=== PATIENT | male | born 1945 | race Caucasian/White ===

== ENCOUNTER 2019-03-12 19:19 | Observation (INO) | payer OTHER ==
--- OUTSIDE RECORDS SUMMARY | 2019-03-12 19:21 | XMS REPORT | Encounter Summary ---
:1945 Author Care Team Providers Name Role Phone Pau Herrera MD Primary Care Provider [phone] Reason for Visit New Patient Instructions 1. Osteoarthritis of knee knee arthritis: care instructions Celebrex 200 mg capsule CMP, serum or plasma Discussion Note: None recorded. Plan of Care Reminders Provider Appointments None recorded. Lab CMP, Serum 12/16/2018 or Plasma Referral None recorded. Procedures None recorded. Surgeries None recorded. Imaging None recorded. Medications Name Start Date amiodarone 200 mg tablet Take 1 tablet every day by oral route. Celebrex 200 mg capsule Take 1 capsule every day by oral route. celecoxib 100 mg capsule cholecalciferol (vitamin D3) cyclobenzaprine 10 mg tablet hydrochlorothiazide 25 mg tablet Take 1 tablet every day by oral route. hydrocodone 7.5 mg-acetaminophen 325 mg tablet metoprolol succinate ER 100 mg tablet,extended release 24 hr Take 1 tablet every day by oral route. simvastatin 40 mg tablet Take 1 tablet every day by oral route. tamsulosin 0.4 mg capsule Take 1 capsule every day by oral route. warfarin 5 mg tablet Medications Administered None recorded. Vitals Height Weight BMI Blood Pressure 72 in 228 lbs 30.9 kg/m2 146/81 mm[Hg] Lab Results None recorded. Allergies Code Code System Name Reaction Severity Status Onset [id number] RxNorm Levaquin Active Problems No Known Problems Procedures None recorded. Vaccine List None recorded. Social History Tobacco Smoking Status Never Smoker Past Encounters 12/16/2018 Osteoarthritis of Knee David Campbell MD: [address] [place] [address] [address], [place] [address], Ph. [phone] History of Present Illness Knee Reported By: Patient HPI: Location: left. Quality: aching, burning, gnawing. Severity: moderate. Duration: continuous since onset. Timing: chronic. Alleviating Factors: sitting, standing. Aggravating Factors: cannot identify. Previous Surgery: none. Prior Imaging: x ray. Previous Injections: none. Previous PT: none. Work Related: no. Working: no Review of Systems: ROS as noted in the HPI Review of Systems None recorded. Physical Exam Knee Reported By: Patient Constitutional: General Appearance: overweight, obese Gait and Station: Appearance: antalgic gait Cardiovascular System: Arterial Pulses Left: femoral diminished, popliteal diminished, dorsalis pedis diminished, posterior tibialis diminished Knees: Inspection Left: genu varum deformity. Bony Palpation Left: tenderness of the lateral wall trochlear groove. Active Range of Motion Left: limited. Passive Range of Motion Left: limited. Stability Left: Kat test negative, anterior drawer sign positive, posterior drawer sign positive. Special Tests Left: Brenda's test positive, Apley's compression test positive Skin: Right Lower Extremity: normal. Left Lower Extremity: normal Neurologic: Coordination: [id number] normal. Ankle Reflex Right: normal (2). Ankle Reflex Left: normal (2). Knee Reflex Right: normal (2). Knee Reflex Left: normal (2). Sensation on the Right: T12 normal, L1 normal, L2 normal, L3 normal, L4 normal, L5 normal, S1 normal, S2 normal, S3,4,5 normal. Sensation on the Left: T12 normal, L1 normal, L2 normal, L3 normal, L4 normal, L5 normal, S1 normal, S2 normal, S3,4,5 normal Psychiatric: Orientation: oriented to time, oriented to place, oriented to person. Mood and Affect: active and alert, normal mood, normal affect
--- OUTSIDE RECORDS SUMMARY | 2019-03-12 19:22 | XMS REPORT ---
:1945 [facility] Address [address] [place] [address] Care Team Providers Name Role Phone Unavailable Unavailable Unavailable Payers Payer Name Policy Type Policy Number Effective Date Expiration Date Problems This patient has no known problems. Allergies, Adverse Reactions, Alerts Allergy Name Allergy Status Severity Reaction(s) Onset Inactive Treating Comments Type Date Date Clin[place] [address] Allergies 9-16 00:00: 00 levofloxacin DA Active CA 2018- 9-16 00:00: 00 No Known DA Active U 2004-0 Contrast 8-30 Allergies 00:00: 00 No Known Drug DA Active U 2004-0 Allergies 8-30 00:00: 00 No Known Food DA Active U 2004-0 Allergies 8-30 00:00: 00 No Known Other DA Active U 2004-0 Allergies 8-30 00:00: 00 No Known Drug DA Active U 2001-0 Intolerances 2-07 00:00: 00 Medications This patient has no known medications. Results Test Description Test Time Test Comments Text Results Atomic Results Result Comments COMPREHENSIVE METABOLIC PANEL 2019-01-07 17:08:00 Test Item Value Reference Range Comments SODIUM (test code=NA) 142 mEq/L 134-147 POTASSIUM (test code=K) 3.8 mEq/L 3.4-5.0 CHLORIDE (test code=CL) 103 mEq/L 100-108 CARBON DIOXIDE (test code=CO2) 35 mEq/L 21-33 ANION GAP (test code=GAP) 8 0-20 GLUCOSE (test code=GLU) 102 mg/dL 70-110 BLOOD UREA NITROGEN (test code=BUN) 15 mg/dL 7-18 GLOMERULAR FILTRATION RATE (test 72.8 70-80 Units of measure=ml/min/1.73 code=GFR) m2 CREATININE (test code=CREAT) 1.0 mg/dL 0.6-1.3 TOTAL PROTEIN (test code=PROT) 6.5 g/dL 6.4-8.2 ALBUMIN (test code=ALB) 3.80 g/dL 3.4-5.0 CALCIUM (test code=CA) 9.3 mg/dL 8.0-10.5 BILIRUBIN TOTAL (test code=BILT) 0.9 MG/DL <1.5 SGOT/AST (test code=AST) 20 IUnit/L 15-37 SGPT/ALT (test code=ALT) 26 IUnit/L 15-65 ALKALINE PHOSPHATASE TOTAL (test 67 IUnit/L 20-125 code=ALKP) SERUM [id number] 17:08:00 Test Item Value Reference Range Comments SERUM IRON (test code=IRON) 101 mcg/dL 35-150 VITAMIN [id number] 17:08:00 Test Item Value Reference Range Comments VITAMIN B12 (test code=VITB12) 781 pg/mL 193-986 THYROID STIMULATING [id number] 17:08:00 Test Item Value Reference Range Comments THYROID STIMULATING HORMONE (test 0.41 0.42-5.47 Results in terrence- International code=TSH) Units/mL VIT B1 WHOLE [id number] 17:08:00 Test Item Value Reference Range Comments VIT B1 WHOLE BLOOD 120.1 nmol/L 66.5-200.0 This test was developed and its (test performance characteristicsdetermined code=IJAQ9OK) by [employer]. It has not been cleared orapproved by the Food and Drug Administration.Performed At: [address] [id number] Wooten MD Ph:[phone] VITAMIN D [id number] 17:08:00 Test Item Value Reference Range Comments VITAMIN D 25-HYDROXY (test code=VITD25) 39.8 ng/mL 30-100 PROTHROMBIN [id number] 07:26:00 Test Item Value Reference Range Comments PROTHROMBIN TIME PATIENT 13.9 SECONDS 9.3-12.9 (test code=PTP) INTERNATIONAL NORMAL RATIO 1.3 0.8-1.2 TARGET INR BY (test code=INR) INDICATION Indication INR1. Prophylaxis of venous thrombosis 2.0 - 3.0 (orthopedic surgery), Prophylaxis of venous thrombosis (other than high-risk surgery), Treatment of Deep Vein Thrombosis/Pulmonary Embolism, Prevention of systemic embolism - Tissue heart valves, Acute Myocardial Infarction (to prevent systemic embolism), Valvular heart disease, Atrial Fibrillation, Bileaflet mechanical valve in aortic position.2. Mechanical prosthetic valves (high risk), 2.5 - 3.5 Presence of Lupus Anticoagulant or Antiphospholipid Antibodies, Prevention of systemic embolism - Acute Myocardial Infarction (to prevent recurrent infarct). THROMBOPLASTIN TIME [id number] 07:26:00 Test Item Value Reference Range Comments THROMBOPLASTIN TIME PARTIAL 32.1 Seconds 25.0-39.5 Therapeutic Range: (test code=PTT) 50.4 - 88.3 Seconds Effective 08/03/2018 AB HELICOBACTER [id number] 11:10:00 Test Item Value Reference Range Comments AB HELICOBACTER IGG (test 0.67 0.00-0.79 INFCE Result Units: Index code=HELIGAB) Value Negative <0.80 Equivocal 0.80 - 0.89 Positive >0.89Performed At: [facility] [address] [place], [place] [id number] Lenin Ramsey MD Ph:[phone] COMPREHENSIVE METABOLIC [id number] 14:28:00 Test Item Value Reference Range Comments SODIUM (test code=NA) 142 mEq/L 134-147 POTASSIUM (test code=K) 3.8 mEq/L 3.4-5.0 CHLORIDE (test code=CL) 103 mEq/L 100-108 CARBON DIOXIDE (test code=CO2) 35 mEq/L 21-33 ANION GAP (test code=GAP) 8 0-20 GLUCOSE (test code=GLU) 102 mg/dL 70-110 BLOOD UREA NITROGEN (test 15 mg/dL 7-18 code=BUN) GLOMERULAR FILTRATION RATE 72.8 70-80 Units of (test code=GFR) measure=ml/min/1.73 m2 CREATININE (test code=CREAT) 1.0 mg/dL 0.6-1.3 TOTAL PROTEIN (test code=PROT) 6.5 g/dL 6.4-8.2 ALBUMIN (test code=ALB) 3.80 g/dL 3.4-5.0 CALCIUM (test code=CA) 9.3 mg/dL 8.0-10.5 BILIRUBIN TOTAL (test 0.9 MG/DL <1.5 code=BILT) SGOT/AST (test code=AST) 20 IUnit/L 15-37 SGPT/ALT (test code=ALT) 26 IUnit/L 15-65 ALKALINE PHOSPHATASE TOTAL 67 IUnit/L 20-125 (test code=ALKP) SERUM [id number] 14:28:00 Test Item Value Reference Range Comments SERUM IRON (test code=IRON) 101 mcg/dL 35-150 VITAMIN [id number] 14:28:00 Test Item Value Reference Range Comments VITAMIN B12 (test code=VITB12) 781 pg/mL 193-986 THYROID STIMULATING [id number] 14:28:00 Test Item Value Reference Range Comments THYROID STIMULATING HORMONE (test 0.41 0.42-5.47 Results in terrence- International code=TSH) Units/mL VIT B1 WHOLE [id number] 14:28:00 Test Item Value Reference Range Comments VIT B1 WHOLE BLOOD (test code=CJMU0JF) VITAMIN D [id number] 14:28:00 Test Item Value Reference Range Comments VITAMIN D 25-HYDROXY (test code=VITD25) 39.8 ng/mL 30-100 COMPREHENSIVE METABOLIC [id number] 14:15:00 Test Item Value Reference Range Comments SODIUM (test code=NA) 142 mEq/L 134-147 POTASSIUM (test code=K) 3.8 mEq/L 3.4-5.0 CHLORIDE (test code=CL) 103 mEq/L 100-108 CARBON DIOXIDE (test code=CO2) 35 mEq/L 21-33 ANION GAP (test code=GAP) 8 0-20 GLUCOSE (test code=GLU) 102 mg/dL 70-110 BLOOD UREA NITROGEN (test code=BUN) 15 mg/dL 7-18 GLOMERULAR FILTRATION RATE (test code=GFR) 70-80 CREATININE (test code=CREAT) mg/dL 0.6-1.3 TOTAL PROTEIN (test code=PROT) g/dL 6.4-8.2 ALBUMIN (test code=ALB) g/dL 3.4-5.0 CALCIUM (test code=CA) 9.3 mg/dL 8.0-10.5 BILIRUBIN TOTAL (test code=BILT) MG/DL <1.5 SGOT/AST (test code=AST) IUnit/L 15-37 SGPT/ALT (test code=ALT) IUnit/L 15-65 ALKALINE PHOSPHATASE TOTAL (test code=ALKP) IUnit/L 20-125 SERUM [id number] 14:15:00 Test Item Value Reference Range Comments SERUM IRON (test code=IRON) mcg/dL 35-150 VITAMIN [id number] 14:15:00 Test Item Value Reference Range Comments VITAMIN B12 (test code=VITB12) pg/mL 193-986 THYROID STIMULATING [id number] 14:15:00 Test Item Value Reference Range Comments THYROID STIMULATING HORMONE (test code=TSH) 0.42-5.47 VIT B1 WHOLE [id number] 14:15:00 Test Item Value Reference Range Comments VIT B1 WHOLE BLOOD (test code=WJJQ9FF) VITAMIN D [id number] 14:15:00 Test Item Value Reference Range Comments VITAMIN D 25-HYDROXY (test code=VITD25) 39.8 ng/mL 30-100 COMPREHENSIVE METABOLIC [id number] 13:55:00 Test Item Value Reference Range Comments SODIUM (test code=NA) 142 mEq/L 134-147 POTASSIUM (test code=K) 3.8 mEq/L 3.4-5.0 CHLORIDE (test code=CL) 103 mEq/L 100-108 CARBON DIOXIDE (test code=CO2) 35 mEq/L 21-33 ANION GAP (test code=GAP) 8 0-20 GLUCOSE (test code=GLU) 102 mg/dL 70-110 BLOOD UREA NITROGEN (test code=BUN) 15 mg/dL 7-18 GLOMERULAR FILTRATION RATE (test code=GFR) 70-80 CREATININE (test code=CREAT) mg/dL 0.6-1.3 TOTAL PROTEIN (test code=PROT) g/dL 6.4-8.2 ALBUMIN (test code=ALB) g/dL 3.4-5.0 CALCIUM (test code=CA) 9.3 mg/dL 8.0-10.5 BILIRUBIN TOTAL (test code=BILT) MG/DL <1.5 SGOT/AST (test code=AST) IUnit/L 15-37 SGPT/ALT (test code=ALT) IUnit/L 15-65 ALKALINE PHOSPHATASE TOTAL (test code=ALKP) IUnit/L 20-125 SERUM [id number] 13:55:00 Test Item Value Reference Range Comments SERUM IRON (test code=IRON) mcg/dL 35-150 VITAMIN [id number] 13:55:00 Test Item Value Reference Range Comments VITAMIN B12 (test code=VITB12) pg/mL 193-986 THYROID STIMULATING [id number] 13:55:00 Test Item Value Reference Range Comments THYROID STIMULATING HORMONE (test code=TSH) 0.42-5.47 VIT B1 WHOLE [id number] 13:55:00 Test Item Value Reference Range Comments VIT B1 WHOLE BLOOD (test code=PDHK6UO) VITAMIN D [id number] 13:55:00 Test Item Value Reference Range Comments VITAMIN D 25-HYDROXY (test code=VITD25) ng/mL 30-100 PROTHROMBIN [id number] 13:45:00 Test Item Value Reference Range Comments PROTHROMBIN TIME PATIENT 18.3 SECONDS 9.3-12.9 (test code=PTP) INTERNATIONAL NORMAL RATIO 1.7 0.8-1.2 TARGET INR BY (test code=INR) INDICATION Indication INR1. Prophylaxis of venous thrombosis 2.0 - 3.0 (orthopedic surgery), Prophylaxis of venous thrombosis (other than high-risk surgery), Treatment of Deep Vein Thrombosis/Pulmonary Embolism, Prevention of systemic embolism - Tissue heart valves, Acute Myocardial Infarction (to prevent systemic embolism), Valvular heart disease, Atrial Fibrillation, Bileaflet mechanical valve in aortic position.2. Mechanical prosthetic valves (high risk), 2.5 - 3.5 Presence of Lupus Anticoagulant or Antiphospholipid Antibodies, Prevention of systemic embolism - Acute Myocardial Infarction (to prevent recurrent infarct). THROMBOPLASTIN TIME [id number] 13:45:00 Test Item Value Reference Range Comments THROMBOPLASTIN TIME PARTIAL 33.1 Seconds 25.0-39.5 Therapeutic Range: (test code=PTT) 50.4 - 88.3 Seconds Effective 08/03/2018 CBC W/AUTO [id number] 13:43:00 Test Item Value Reference Range Comments WHITE BLOOD CELL (test code=WBC) 5.66 x10 3/uL 4.5-11.0 RED BLOOD CELL (test code=RBC) 4.34 x10 6/uL 4.00-5.60 HEMOGLOBIN (test code=HGB) 13.5 g/dL 12.5-16.9 HEMATOCRIT (test code=HCT) 41.7 % 37.5-50.7 MEAN CELL VOLUME (test code=MCV) 96.1 fL 81.0-99.0 MEAN CELL HGB (test code=MCH) 31.1 pg 27.0-33.0 MEAN CELL HGB CONCETRATION (test code=MCHC) 32.4 g/dL 33.0-37.0 RED CELL DISTRIBUTION WIDTH CV (test code=RDW) 13.4 % 11.5-14.5 RED CELL DISTRIBUTION WIDTH SD (test 47.8 fL 37.0-54.0 code=RDW-SD) PLATELET COUNT (test code=PLT) 183 x10 3/uL 150-400 MEAN PLATELET VOLUME (test code=MPV) 10.1 fL 7.0-9.0 NEUTROPHIL % (test code=NT%) 57.8 % 56.0-77.0 IMMATURE GRANULOCYTE % (test code=IG%) 0.5 % 0.0-2.0 LYMPHOCYTE % (test code=LY%) 27.7 % 14.0-32.0 MONOCYTE % (test code=MO%) 10.2 % 4.8-9.0 EOSINOPHIL % (test code=EO%) 3.4 % 0.3-3.7 BASOPHIL % (test code=BA%) 0.4 % 0.0-2.0 NUCLEATED RBC % (test code=NRBC%) 0.0 % 0-0 NEUTROPHIL # (test code=NT#) 3.27 x10 3/uL 2.0-7.6 IMMATURE GRANULOCYTE # (test code=IG#) 0.03 x10 3/uL 0.00-0.03 LYMPHOCYTE # (test code=LY#) 1.57 x10 3/uL 1.0-3.8 MONOCYTE # (test code=MO#) 0.58 x10 3/uL 0.1-0.8 EOSINOPHIL # (test code=EO#) 0.19 x10 3/uL 0.0-0.2 BASOPHIL # (test code=BA#) 0.02 x10 3/uL 0.0-0.2 NUCLEATED RBC # (test code=NRBC#) 0.00 x10 3/uL 0.0-0.1 MANUAL DIFF REQUIRED (test code=MDIFF) NO - XR CHEST 2 [id number] 12:58:00 FAX: Hiren Mohamud MD [phone] [facility]: St: PRE FAX: Pau Stewart [phone] --- Name: MOE MELGAR JR [facility] : 1945 Age/S: 73/M [address] [place] [address] Bl Unit #: [id number] Loc: [place] [address] Phys: Hiren Mohamud MD Acct: [id number] Dis Date: Status: PRE [facility] PHONE #: [phone] Exam Date: 01/03/2019 1239 FAX #: [phone] Reason: PRE-OP REMOVE FOREIGN BODY FROM GI TRACT EXAMS: CPT CODE: [id number] XR CHEST 2 V [id number] EXAM: PA andlateral chest. EXAM DATE: January 03, 2019 at 1235 hours CLINICAL HISTORY: PRE-OP REMOVE FOREIGN BODY FROM GI TRACT COMPARISON: December 13, 2004 at 1107 hours Cardiomediastinal silhouette is within normal limits. The lungs appear free ofacute disease. Bridging osteophytes and scoliosis is identified in the thoracic and upper lumbar spine. IMPRESSION: No evidence of acute cardiopulmonary disease. at 1258 Reported and signed by: Rosalinda Vincent M.D. CC: Hiren Mohamud MD; Pau Herrera MD Technologist: Leonarda Rosenberg RT(R) Trnscrd Date/Time/By: 01/03/2019 (1258) : By: EdelCER Orig Print D/T: S: 01/03/2019 (0932) PAGE 1 Signed Report
--- OUTSIDE RECORDS SUMMARY | 2019-03-12 19:22 | XMS REPORT | Summary of Care ---
:1945 Author Organization [facility] [place] [address] Care Team Providers Name Role Phone Pau Herrera Primary Care Provider Reason for Visit Reason Comments Cardiology Follow-up paroxysmal atrial fibrillation Encounter Details Date Type Department Care Team Description 02/07/2019 Office Visit [facility] Khang [facility] MD Macy (paroxysmal atrial [facility] [address] fibrillation) [address] [facility] [address] [place] [address] [id number] Allergies Active Allergy Reactions Severity Noted Date Comments Mallika 06/15/2015 documented as of this encounter (statuses as of 02/07/2019) Medications Medication Sig Dispensed Refills Start Date End Date Status Hydrocodone-Acetamino 0 Active phen (NORCO OR) cyclobenzaprine Take 1 Tab by 0 Active (FLEXERIL) 10 MG mouth as tablet needed. Tamsulosin HCl 0.4 MG Take 1 Cap by 0 Active CAPS mouth daily. amiodarone (PACERONE) Take by 0 Active 200 MG mouth. tabletIndications: Indications: take 1/2 tab by mouth take 1/2 tab daily by mouth daily metoprolol Take 0.5 Tabs 0 Active (TOPROL-XL) 100 MG XL by mouth two tablet times daily. simvastatin (ZOCOR) Take 1 Tab by 0 Active 40 MG tablet mouth daily. valsartan-hydrochloro Take 1 Tab by 0 Active thiazide (DIOVAN-HCT) mouth daily. 160-25 MG per tablet Cholecalciferol Take by 0 Active (VITAMIN D OR) mouth. warfarin (COUMADIN) 5 TAKE 1 TABLET 5 Tab 0 08/16/2018 Discontinued MG tablet BY MOUTH EVERY 9 DAY FOR 6 DAYS THEN ON DAY 7 TAKE 1.5 TABLETS DIRECTED warfarin (COUMADIN) 5 SEE NOTES 45 Tab 0 01/04/2019 Discontinued MG tablet 9 celecoxib (CELEBREX) Take 200 mg by 0 Discontinued 200 MG capsule mouth daily. 9 documented as of this encounter (statuses as of 02/07/2019) Active Problems Problem Noted Date Ventral hernia 11/10/2016 Varicose veins of both lower extremities 11/10/2016 Corneal abnormality 11/10/2016 DJD (degenerative joint disease) 06/15/2015 Abdominal aorta injury 06/15/2015 CAD (coronary artery disease) 06/15/2015 Atrial fibrillation (HCCode) 06/15/2015 Paroxysmal supraventricular tachycardia (HCCode) 06/15/2015 GERD (gastroesophageal reflux disease) 06/15/2015 History of tobacco abuse 06/15/2015 Scoliosis of lumbar spine 06/15/2015 Asbestos exposure 06/15/2015 HTN (hypertension) 06/15/2015 Morbid obesity (HCCode) 06/15/2015 ALYSA (obstructive sleep apnea) 06/15/2015 HLD (hyperlipidemia) 06/15/2015 LICAS 03/08/13 06/15/2015 documented as of this encounter (statuses as of 02/07/2019) Social History Tobacco Use Types Packs/Day Years Used Date Former Smoker Quit: 06/17/1973 Smokeless Tobacco: Never Used Alcohol Use Drinks/Week oz/Week Comments No Sex Assigned at Date Recorded Not on file Job Start Date Occupation Industry Not on file Not on file Not on file Travel History Travel Start Travel End No recent travel history available. documented as of this encounter Last Filed Vital Signs Vital Sign Reading Time Taken Comments Blood Pressure 140/80 02/07/2019 1:40 PM CDT Pulse 64 02/07/2019 1:30 PM CDT Temperature - - Respiratory Rate - - Oxygen Saturation - - Inhaled Oxygen Concentration - - Weight 103.3 kg (227 lb 12.8 oz) 02/07/2019 1:30 PM CDT Height 182.9 cm (6') 02/07/2019 1:30 PM CDT Body Mass Index 30.9 02/07/2019 1:30 PM CDT documented in this encounter Progress Notes Khang Hernandez MD - 02/07/2019 1:30 PM CDT Khang Hernandez MD Office HP/Followup Today's Date: 02/07/2019 1:50 PM Latrell Stoddard is a 73 y.o. male patient. Date of : 1945 Referring MD: Pau Bell Dr, CLAUDIA Cruz [address] [facility] Estimated body mass index is 30.9 kg/m as calculated from the following: Height as of this encounter: 6' (1.829 m). Weight as of this encounter: 227 lb 12.8 oz (103.3 kg). Body surface area is 2.29 meters squared. Present HPI 02/07/19 SInce Last Visit the following is noted: All his joints ache Denies RSCP SOB is chronic unchanged Recent umbilical hernia repair OPV 10/12/17 SInce Last Visit the following is noted: asx Uses CBD (cannabis) Oil, now essentially pain free OPV 11/10/16 SInce Last Visit the following is noted: Had a form of right corneal tissue transplant Pt on chronic amiodarone Denies RSCP OPV 06/18/15 Patient is a 69 year old male with a h/o CAD, DIANDRA, HTN, LICA stent 03/08/13, HL , ALYSA on CPAP, Obesity, and Afib who presents for followup. The patient was last seen on 02/13/14. The patient currently has no complaints. He denies chest pain, SOB, orthopnea, PND, or WILVER. He does complain of generalized aches and pains which he attributes to his scoliosis. Denies RSCP OPV 02/13/14 68yo WM here for a F/U visit. PMH CAD, DIANDRA, HTN, LICA stent 03/08/13, Abdominal aortic aneurysm, Hyperlipidemia, ALYSA w/ CPAP, Obesity and Atrial Fibrillation. Patient denies any new events in his life, here with his . He is not exercising, eating healthy nor checking his BP at home. He is compliant with his medications. Patient complains of blurred vision and wants to know if Amiodarone could be the cause of this. Denies chest pain, palpitations, SOB, dizziness, claudication, peripheral edema , headache or syncope. 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 New velocities have jumped from 140/40 to 260/ 65 cm/sec ANGIOGRAPHY-DATE: 04/07/07 02/22/13 LICA stent 03/08/13 03/08/13: iCast 10 x 37 abdominal aorta, post dilated to 20x20 (03/08/13) for injury CAROTID DOPPLERs-LICA stent 03/08/13 HANK-DATE 12/22/12 04/03/14 06/24/16 02/07/19 Right 86/28 88/30 75/27 64/13 Left 241/67 78/27 73/27 73/12 HANK-DATE Right Left AD MIBI DATES: 02/09/13 normal TTE DATES: 12/04/11 Normal Allergies: Allergies Allergen Reactions Levaquin Past Medical History Past Medical History: Diagnosis Date Abdominal aorta injury 06/15/2015 Atrial fibrillation 06/15/2015 CAD (coronary artery disease) 06/15/2015 Carotid artery stenosis 06/15/2015 DJD (degenerative joint disease) 06/15/2015 GERD (gastroesophageal reflux disease) 06/15/2015 History of tobacco abuse 06/15/2015 HLD (hyperlipidemia) 06/15/2015 HTN (hypertension) 06/15/2015 Morbid obesity 06/15/2015 ALYSA (obstructive sleep apnea) 06/15/2015 Paroxysmal supraventricular tachycardia 06/15/2015 Scoliosis of lumbar spine 06/15/2015 Surgical History: Past Surgical History: Procedure Laterality Date HX EYE SURGERY Right HX STENT/ANGIOPLASTY Social History: Social History Socioeconomic History Marital status: Spouse name: Not on file Number of children: Not on file Years of education: Not on file Highest education level: Not on file Occupational History Occupation: retired Social Needs Financial resource strain: Not on file Food insecurity: Worry: Not on file Inability: Not on file Transportation needs: Medical: Not on file Non-medical: Not on file Tobacco Use Smoking status: Former Smoker Quit date: 06/17/1973 Years since quittin.6 Smokeless tobacco: Never Used Substance and Sexual Activity Alcohol use: No Drug use: No Sexual activity: Not on file Lifestyle Physical activity: Days per week: Not on file Minutes per session: Not on file Stress: Not on file Relationships Social connections: Talks on phone: Not on file Gets together: Not on file Attends gnosticist service: Not on file Active member of club or organization: Not on file Attends meetings of clubs or organizations: Not on file Relationship status: Not on file Intimate partner violence: Fear of current or ex partner: Not on file Emotionally abused: Not on file Physically abused: Not on file Forced sexual activity: Not on file Other Topics Concerns: Not on file Social History Narrative Not on file Family History: Family History Problem Relation Name Age of Onset Hypertension Mother Heart Attack Father Cardiac Risk assessment: Hypertension- yes Hypercholesterol- yes Obesity- no Postive Family History- no Diabetes Mellitus- no ROS: General: fatigue Cardiovascular: shortness of breath on exertion GI: constipation : urinary frequency Musculoskeletal: back pain, joint pain Endocrine: cold intolerance nocturia Low back pains Medications: amiodarone (PACERONE) 200 MG tablet Take 1/2 po daily celecoxib (CELEBREX) 200 MG capsule Take 200 mg by mouth daily. Cholecalciferol (VITAMIN D OR) Take by mouth. cyclobenzaprine (FLEXERIL) 10 MG tablet Take 1 Tab by mouth as needed. Hydrocodone-Acetaminophen (NORCO OR) metoprolol (TOPROL-XL) 100 MG XL tablet Take 0.5 Tabs by mouth two times daily. simvastatin (ZOCOR) 40 MG tablet Take 1 Tab by mouth daily. Tamsulosin HCl 0.4 MG CAPS Take 1 Cap by mouth daily. valsartan-hydrochlorothiazide (DIOVAN-HCT) 160-25 MG per tablet Take 1 Tab by mouth daily. warfarin (COUMADIN) 5 MG tablet 5mg x 6 days; 7.5 mg x 1 day LAB RESULTS: DATE 01/30/14 TC: 186 HDL: 58 LDL: 113 T H/H: 13.7/41.5 BUN/Cr/EGFR/K: 19/.12/4.1 Glucose/HbA1C: 102 Physical Exam HG CARDI VITALS 02/07/2019 02/07/2019 Height 6' 0" - Weight 227 lb 12.8 oz - BP 140/80 140/80 BP Location right arm left arm Patient Position Sitting Sitting Pulse 64 - BSA (Calculated - sq m) - - BMI (Calculated) - - Some recent data might be hidden General Appearance: Alert, cooperative, no distress, appears stated age Head: Normocephalic, without obvious abnormality, atraumatic Eyes: PERRL, conjunctiva/corneas clear, EOM's intact, fundi Ears: Normal TM's and external ear canals, both ears Nose: Nares normal, septum midline, mucosa normal, no drainage or sinus tenderness Throat: Lips, mucosa, and tongue normal; teeth and gums normal Neck: Supple, symmetrical, trachea midline, no adenopathy; thyroid: No enlargement/tenderness/nodules; no carotid bruit or JVD Back: Symmetric, no curvature, ROM normal, no CVA tenderness Lungs: Clear to auscultation bilaterally, respirations unlabored Chest wall: No tenderness or deformity Heart: Regular rate and rhythm, S1 normal S2 normal Murmur:none Abdomen: Soft, non-tender, bowel sounds active all four quadrants, no masses, no organomegaly; ventral hernia Extremities: Extremities normal, atraumatic, no cyanosis or edema Right leg varicosies Skin: Skin color, texture, turgor normal, no rashes or lesions Neurologic: CNII-XII intact. Normal strength, sensation and reflexes throughout Vascular Physical Examination- all pulses were normal EC02/07/19 DECISION MAKING PLANS for PROBLEMS- Problem List Patient Active Problem List Diagnosis DJD (degenerative joint disease) Abdominal aorta injury CAD (coronary artery disease) Atrial fibrillation (HCCode) Paroxysmal supraventricular tachycardia (HCCode) GERD (gastroesophageal reflux disease) History of tobacco abuse Scoliosis of lumbar spine Asbestos exposure HTN (hypertension) Morbid obesity (HCCode) ALYSA (obstructive sleep apnea) HLD (hyperlipidemia) Carotid artery stenosis Ventral hernia Varicose veins of both lower extremities Corneal abnormality TODAY'S PLAN-all old records reviewed today 1-Fax appropriate records to LMD 2-mibi 3-echo 4-change Coumadin to Eliquis 5mg po BID 5-Celbrex 200mg as needed is OK Khang Hernandez MD [facility] FACP [facility] Khang Hernandez MD FAC FACP [facility] [employer]ing Machine Operator of [employer] Services at [facility] Chief of Peripheral Vascular Medicine at [facility] [phone] [place] [address] [email or web address] documented in this encounter Plan of Treatment Date Type Specialty Care Team Description 02/28/2019 Ancillary Procedure Cardiology 02/28/2019 Procedure Visit-Tech Performed Cardiology Health Maintenance Due Date Last Done Comments COLON CANCER SCREENING: COLONOSCOPY 1945 MEDICARE AWV 1945 TETANUS SHOT (ADULT) 12/16/1958 BMI FOLLOW UP PLAN 12/16/1961 AAA Screen 12/16/2008 FALL SCREEN 12/16/2008 PNEUMOVAX >=65 (PPSV23) 12/16/2008 PREVNAR >=65 (PCV13) 12/16/2008 FLU VACCINE > 6 MONTHS 11/18/2018 documented as of this encounter Procedures Procedure Name Priority Date/Time Associated Comments Diagnosis ELECTROCARDIOGRAM Routine 02/07/2019 2:00 Paroxysmal atrial Results for this COMPLETE PM CDT fibrillation procedure are in (HCCode) the results section. documented in this encounter Results ELECTROCARDIOGRAM COMPLETE (02/07/2019 2:00 PM CDT) Narrative Performed At Result approved by Khang Hernandez MD on 02/07/19 documented in this encounter Visit Diagnoses Diagnosis Coronary artery disease involving lovelock coronary artery of lovelock heart without angina pectoris - Primary Paroxysmal atrial fibrillation (HCCode) Atrial fibrillation documented in this encounter Insurance Payer Benefit Plan / Subscriber ID Effective Dates Phone Address Type Group [employer] MEDICARE PLAN PPO xxxxxxxx 2016-Present [address] Medicare - [employer] [place] [phone] documented as of this encounter
--- NOTE | 2019-03-12 20:15 | RAD REPORT ---
EXAM DESCRIPTION: CT - Head Brain Wo Cont - 03/12/2019 8:09 pm CLINICAL HISTORY: Dizziness;Mental status change Headache, drowsiness COMPARISON: No comparisons TECHNIQUE: All CT scans are performed using dose optimization technique as appropriate and may inclu de automated exposure control or mA/KV adjustment according to patient size. FINDINGS: No intracranial hemorrhage, hydrocephalus or extra-axial fluid collection.No areas of brai n edema or evidence of midline shift. The paranasal sinuses and mastoids are clear. The calvarium is intact. Left vertebral artery is calci fied. IMPRESSION: No acute intracranial abnormality.
--- NOTE | 2019-03-12 20:32 | EDPHYS ---
Physician Documentation [facility] Name: Latrell Stoddard Age: 73 yrs Sex: Male : 1945 Arrival Date: 03/12/2019 Time: 19:30 Bed 16 Private MD: Navarro Woods HPI: 03/12 20:20 This 73 yrs old Male presents to ER via EMS with complaints of Doesn't Feel jaquan Right. 20:20 The patient or guardian reports chest pain that is located primarily in the substernal jaquan area. Onset: 2 day(s) ago. The patient presents with abdominal pain in the upper abdomen, in the lower abdomen, abdominal distention in the upper abdomen, in the lower abdomen. Onset: The symptoms/episode began/occurred 2 day(s) ago. The patient presents to the emergency department with nausea, abdominal pain, of the right upper quadrant, left upper quadrant, right lower quadrant and left lower quadrant. Possible causes: unknown. Historical: - Allergies: 22:29 Lovenox; tr5 - Home Meds: 22:29 Cymbalta oral oral [Active]; Amiodarone Oral [Active]; simvastatin 5 mg Oral tab tr5 [Active]; Hydrochlorothiazide Oral [Active]; - PMHx: 22:29 Hypertension; tr5 - PSHx: 22:29 Cardiac stents; lap ban; tr5 - Immunization history:: Adult Immunizations up to date. - Social history:: Smoking status: Patient/guardian denies using tobacco, never smoked, Patient uses street drugs, marijuana. - Ebola Screening: : No symptoms or risks identified at this time. - Family history:: not pertinent. ROS: 20:20 Constitutional: Negative for fever, chills, and weight loss, Eyes: Negative for injury, jaquan pain, redness, and discharge, ENT: Negative for injury, pain, and discharge, Neck: Negative for injury, pain, and swelling, Respiratory: Negative for shortness of breath, cough, wheezing, and pleuritic chest pain, Back: Negative for injury and pain, : Negative for injury, bleeding, discharge, and swelling, MS/Extremity: Negative for injury and deformity, Skin: Negative for injury, rash, and discoloration, Neuro: Negative for headache, weakness, numbness, tingling, and seizure, Psych: Negative for depression, anxiety, suicide ideation, homicidal ideation, and hallucinations, Allergy/Immunology: Negative for hives, rash, and allergies, Endocrine: Negative for neck swelling, polydipsia, polyuria, polyphagia, and marked weight changes, Hematologic/Lymphatic: Negative for swollen nodes, abnormal bleeding, and unusual bruising. 20:20 Cardiovascular: Positive for chest pain, palpitations. 20:20 Abdomen/GI: Positive for abdominal pain, nausea. Exam: 20:20 Constitutional: This is a well developed, well nourished patient who is awake, alert, jaquan and in no acute distress. Head/Face: Normocephalic, atraumatic. Eyes: Pupils equal round and reactive to light, extra-ocular motions intact. Lids and lashes normal. Conjunctiva and sclera are non-icteric and not injected. Cornea within normal limits. Periorbital areas with no swelling, redness, or edema. ENT: Nares patent. No nasal discharge, no septal abnormalities noted. Tympanic membranes are normal and external auditory canals are clear. Oropharynx with no redness, swelling, or masses, exudates, or evidence of obstruction, uvula midline. Mucous membranes moist. Neck: Trachea midline, no thyromegaly or masses palpated, and no cervical lymphadenopathy. Supple, full range of motion without nuchal rigidity, or vertebral point tenderness. No Meningismus. Chest/axilla: Normal chest wall appearance and motion. Nontender with no deformity. No lesions are appreciated. Respiratory: Lungs have equal breath sounds bilaterally, clear to auscultation and percussion. No rales, rhonchi or wheezes noted. No increased work of breathing, no retractions or nasal flaring. Back: No spinal tenderness. No costovertebral tenderness. Full range of motion. Male : Normal genitalia with no discharge or lesions. Skin: Warm, dry with normal turgor. Normal color with no rashes, no lesions, and no evidence of cellulitis. MS/ Extremity: Pulses equal, no cyanosis. Neurovascular intact. Full, normal range of motion. Neuro: Awake and alert, GCS 15, oriented to person, place, time, and situation. Cranial nerves II-XII grossly intact. Motor strength 5/5 in all extremities. Sensory grossly intact. Cerebellar exam normal. Normal gait. Psych: Awake, alert, with orientation to person, place and time. Behavior, mood, and affect are within normal limits. 20:20 Chest/axilla: Exam negative for Palpation: is normal, no acute changes. 20:20 Cardiovascular: Rate: normal, Rhythm: irregularly irregular, Pulses: Pulses are 4+ in bilateral radial, brachial, femoral, popliteal, posterior tibial and and dorsalis pedis arteries.. Heart sounds: normal, normal S1and S2, no S3 or S4, no murmur, no rub, no gallop, JVD: is not appreciated. Vital Signs: 19:52 BP 143 / 70; Pulse 74; Resp 16; Temp 98.2(O); Pulse Ox 98% on R/A; tr5 MDM: 19:31 Patient medically screened. [facility] 20:23 Data reviewed: vital signs, nurses notes, lab test result(s), EKG, radiologic studies, [facility] CT scan, plain films. 03/12 19:52 Order name: Basic Metabolic Panel; Complete Time: 21:[address] [facility] 03/12 19:52 Order name: CBC with Diff; Complete Time: 21:[address] [facility] 03/12 19:52 Order name: LFT's; Complete Time: 21:[address] [facility] 03/12 19:52 Order name: Magnesium; Complete Time: 21:[address] [facility] 03/12 19:52 Order name: NT PRO-BNP; Complete Time: 21:[address] [facility] 03/12 19:52 Order name: PT-INR; Complete Time: 21:[address] [facility] 03/12 19:52 Order name: Troponin (emerg Dept Use Only); Complete Time: 21:[address] [facility] 03/12 19:52 Order name: Acetaminophen; Complete Time: 21:[address] [facility] 03/12 19:52 Order name: ETOH Level; Complete Time: 21:[address] [facility] 03/12 19:52 Order name: Ptt, Activated; Complete Time: 21:[address] [facility] 03/12 19:52 Order name: Salicylate; Complete Time: 21:[address] [facility] 03/12 19:52 Order name: Urine Drug Screen [facility] 03/12 21:31 Order name: Lipid Profile [facility] 03/12 21:31 Order name: Lipid Profile [facility] 03/12 19:52 Order name: XRAY Chest (1 view); Complete Time: 21:[address] [facility] 03/12 19:52 Order name: EKG; Complete Time: 19:[address] [facility] 03/12 19:52 Order name: CT Head Brain wo Cont; Complete Time: 20:[address] [facility] 03/12 20:26 Order name: CT Aorta for Dissection [facility] 03/12 21:31 Order name: CONS Physician Consult [facility] 03/12 21:31 Order name: Heart Healthy [facility] 03/12 21:31 Order name: Echo with Doppler [facility] 03/12 21:31 Order name: Troponin I [facility] 03/12 21:31 Order name: Troponin I [facility] 03/12 21:31 Order name: Troponin I [facility] 03/12 19:52 Order name: Cardiac monitoring; Complete Time: 20:[address] [facility] 03/12 19:52 Order name: EKG - Nurse/Tech; Complete Time: 20:[address] [facility] 03/12 19:52 Order name: IV Saline Lock; Complete Time: 20:[address] [facility] 03/12 19:52 Order name: Labs collected and sent; Complete Time: 20:[address] [facility] 03/12 19:52 Order name: O2 Per Protocol; Complete Time: 20:[address] [facility] 03/12 19:52 Order name: O2 Sat Monitoring; Complete Time: 20:[address] [facility] Administered Medications: Discontinued: NS 0.9% 1000 ml IV at 125 ml/hr continuous 21:27 Drug: Pepcid 20 mg Route: IVP; Site: left antecubital; tr5 22:00 Follow up: Response: Marked relief of symptoms tr5 21:28 Drug: NS 0.9% 1000 ml Route: IV; Rate: 125 ml/hr; Site: left antecubital; tr5 21:29 Drug: NS 0.9% 500 ml Route: IV; Rate: bolus; Site: left antecubital; tr5 21:32 Drug: Thiamine 100 mg Route: IV; Rate: bolus; Site: left antecubital; tr5 21:32 Drug: foLIC Acid 1 mg Route: IVPB; Site: left antecubital; tr5 22:39 Drug: NS 0.9% with KCl 20 mEq/L 1000 ml Route: IV; Rate: 125 ml/hr; Site: left tr5 antecubital; 23:00 Follow up: Response: No adverse reaction tr5 Disposition: 03/12/19 20:31 Hospitalization ordered by Denise Gonzalez for Inpatient Admission. Preliminary diagnosis are Weakness, Chest pain, unspecified, Abuse of other non-psychoactive substances, Atrial fibrillation and flutter, Hypokalemia. - Bed requested for Telemetry/MedSurg (Inpatient). - Status is Inpatient Admission. tr5 - Condition is Fair. - Problem is new. - Symptoms have improved. UTI on Admission? No Signatures: Dispatcher [employer] EDMS Lona Coy RN RN Navarro Anthony MD MD cha Rodriguez, Tommie, RN RN tr5 Corrections: (The following items were deleted from the chart) 21:46 20:31 Hospitalization Ordered by Denise Gonzalez MD for Inpatient Admission. Preliminary [facility] diagnosis is Weakness; Chest pain, unspecified; Abuse of other non-psychoactive substances; Atrial fibrillation and flutter. Bed requested for Telemetry/MedSurg (Inpatient). Status is Inpatient Admission. Condition is Fair. Problem is new. Symptoms have improved. UTI on Admission? No. jaquan 21:48 21:46 03/12/2019 20:31 Hospitalization Ordered by Denise Gonzalez MD for Inpatient Admission. Preliminary diagnosis is Weakness; Chest pain, unspecified; Abuse of other non-psychoactive substances; Atrial fibrillation and flutter; Hypokalemia. Bed requested for Telemetry/MedSurg (Inpatient). Status is Inpatient Admission. Condition is Fair. Problem is new. Symptoms have improved. UTI on Admission? No. jaquan 23:09 21:48 03/12/2019 20:31 Hospitalization Ordered by Denise Gonzalez MD for Inpatient tr5 Admission. Preliminary diagnosis is Weakness; Chest pain, unspecified; Abuse of other non-psychoactive substances; Atrial fibrillation and flutter; Hypokalemia. Bed requested for Telemetry/MedSurg (Inpatient). Status is Inpatient Admission. Condition is Fair. Problem is new. Symptoms have improved. UTI on Admission? No. yamileth
--- NOTE | 2019-03-12 20:32 | ER ---
Nurse's Notes [facility] Name: Latrell Stoddard Age: 73 yrs Sex: Male : 1945 Arrival Date: 03/12/2019 Time: 19:30 Bed 16 Private MD: Diagnosis: Weakness;Chest pain, unspecified;Abuse of other non-psychoactive substances;Atrial fibrillation and flutter;Hypokalemia Presentation: 03/12 19:52 Presenting complaint: EMS states: Pt states that he smokes marajuana for his scoliosis tr5 and he tried a new kind tonight and just doesn't feel right now. Transition of care: patient was not received from another setting of care. Onset of symptoms was March 12, 2019. Risk Assessment: Do you want to hurt yourself or someone else? Patient reports no desire to harm self or others. Initial Sepsis Screen: Does the patient meet any 2 criteria? No. Patient's initial sepsis screen is negative. Does the patient have a suspected source of infection? No. Patient's initial sepsis screen is negative. Care prior to arrival: None. 19:52 Method Of Arrival: EMS tr5 19:52 Acuity: ROBERT 3 tr5 Historical: - Allergies: 22:29 Lovenox; tr5 - Home Meds: 22:29 Cymbalta oral oral [Active]; Amiodarone Oral [Active]; simvastatin 5 mg Oral tab tr5 [Active]; Hydrochlorothiazide Oral [Active]; - PMHx: 22:29 Hypertension; tr5 - PSHx: 22:29 Cardiac stents; lap ban; tr5 - Immunization history:: Adult Immunizations up to date. - Social history:: Smoking status: Patient/guardian denies using tobacco, never smoked, Patient uses street drugs, marijuana. - Ebola Screening: : No symptoms or risks identified at this time. - Family history:: not pertinent. Screenin:52 Abuse screen: Denies threats or abuse. Nutritional screening: No deficits noted. tr5 Tuberculosis screening: No symptoms or risk factors identified. Fall Risk None identified. Assessment: 19:52 General: Appears uncomfortable, Behavior is flat, listless. Pain: Denies pain. Neuro: tr5 Level of Consciousness is listless. Cardiovascular: Heart tones present Capillary refill < 3 seconds Pulses are all present. Edema is absent. Rhythm is atrial fibrillation. Respiratory: Airway is patent Respiratory effort is even, unlabored, Respiratory pattern is regular, symmetrical, Breath sounds are clear. GI: No signs and/or symptoms were reported involving the gastrointestinal system. : No signs and/or symptoms were reported regarding the genitourinary system. EENT: No signs and/or symptoms were reported regarding the EENT system. Derm: No signs and/or symptoms reported regarding the dermatologic system. Musculoskeletal: No signs and/or symptoms reported regarding the musculoskeletal system. Vital Signs: 19:52 BP 143 / 70; Pulse 74; Resp 16; Temp 98.2(O); Pulse Ox 98% on R/A; tr5 ED Course: 19:30 Patient arrived in ED. tr5 19:31 Navarro Anthony MD is Attending Physician. jaquan 19:51 Enrike Alves, MIKE is Primary Nurse. tr5 19:52 Arm band placed on. tr5 19:52 Bed in low position. Call light in reach. Side rails up X 1. tr5 19:54 Triage completed. tr5 20:08 CT completed. Patient tolerated procedure well. Patient moved back from CT. mw3 20:10 CT Head Brain wo Cont In Process Unspecified. EDMS 20:28 Denise Gonzalez MD is Hospitalizing Provider. [place] 20:30 Radiology exam delayed due to lab results not completed at this time. (BUN/Creatinine). bq 20:32 XRAY Chest (1 view) In Process Unspecified. EDMS 20:47 Inserted saline lock: 20 gauge in left antecubital area, using aseptic technique. tr5 22:35 No provider procedures requiring assistance completed. Patient admitted, IV remains in tr5 place. Administered Medications: Discontinued: NS 0.9% 1000 ml IV at 125 ml/hr continuous 21:27 Drug: Pepcid 20 mg Route: IVP; Site: left antecubital; tr5 22:00 Follow up: Response: Marked relief of symptoms tr5 21:28 Drug: NS 0.9% 1000 ml Route: IV; Rate: 125 ml/hr; Site: left antecubital; tr5 21:29 Drug: NS 0.9% 500 ml Route: IV; Rate: bolus; Site: left antecubital; tr5 21:32 Drug: Thiamine 100 mg Route: IV; Rate: bolus; Site: left antecubital; tr5 21:32 Drug: foLIC Acid 1 mg Route: IVPB; Site: left antecubital; tr5 22:39 Drug: NS 0.9% with KCl 20 mEq/L 1000 ml Route: IV; Rate: 125 ml/hr; Site: left tr5 antecubital; 23:00 Follow up: Response: No adverse reaction tr5 Outcome: 20:31 Decision to Hospitalize by Provider. jaquan 22:33 Admitted to Med/surg tr5 22:33 Condition: stable 22:33 Instructed on the need for admit. 23:09 Patient left the ED. tr5 Signatures: Dispatcher [employer] Navarro Hernandez MD MD cha Quilty, Betty bq Willis, Michelle mw3 Enrike Alves, RN RN tr5
--- NOTE | 2019-03-12 20:44 | RAD REPORT ---
EXAM DESCRIPTION: RAD - Chest Single View - 03/12/2019 8:31 pm CLINICAL HISTORY: COUGH Chest pain. COMPARISON: No comparisons FINDINGS: Portable technique limits examination quality. The lungs are grossly clear. The heart is mildly enlarged in size. No displaced fractures. IMPRESSION: Mild cardiomegaly.
[2019-03-12 20:59] LABS: Absolute Lymphocytes (CBC) 1.5 K/uL (0.7-4.9); Basophils % 0.3 % (0-1.3); Hematocrit 42.3 % (39.6-49.0); Lymphocytes % 19.2 % (15.3-44.8); MPV 8.5 fL (7.6-11.3)
[2019-03-12 21:02] LABS: Protime INR 1.15
[2019-03-12] MEDS ORDERED: ACETAMINOPHEN 500 MG TAB PO PRN (21:13)
[2019-03-12] MEDS ORDERED: ALPRAZOLAM 0.25 MG TABLET PO PRN (21:13)
[2019-03-12] MEDS ORDERED: THIAMINE 200 MG/2 ML INJ ONE (21:16)
[2019-03-12] MEDS ORDERED: FAMOTIDINE 20 MG/2 ML VIAL IV ONE (21:16)
[2019-03-12] MEDS ORDERED: NA CHLORIDE 0.9% 1,000 ML ONE (21:16)
[2019-03-12] MEDS ORDERED: FOLIC ACID 5 MG/ML VIAL ONE (21:17)
[2019-03-12 21:22] LABS: ALT/SGPT 24 U/L (12-78); AST/SGOT 18 U/L (15-37); Albumin 3.8 g/dL (3.4-5.0); Alkaline Phosphatase 69 U/L (45-117); BUN Blood Urea Nitrogen 20 mg/dL (7-18); Bicarbonate 30 mmol/L (21-32); Bilirubin Direct 0.3 mg/dL (0-0.2); Bilirubin Total 0.5 mg/dL (0.2-1.0); Glucose Level 135 mg/dL (74-106); Magnesium 2.3 mg/dL (1.8-2.4); NT PRO-BNP 410 pg/mL (<450); Potassium 3.3 mmol/L (3.5-5.1); Sodium Level 140 mmol/L (136-145); Troponin (Emerg Dept Use Only) < 0.02 ng/mL (0.0-0.045)
[2019-03-12] MEDS ORDERED: NS KCL 20MEQ 1,000 ML IV ONE (22:20)
[2019-03-12 23:07] VITALS: BMI 31.0
[2019-03-12] MEDS: MORPHINE 4 MG/ML SYR IV PRN (23:37)
[2019-03-12 23:43] LABS: Barbiturates NEGATIVE (NEGATIVE); Benzodiazepines NEGATIVE (NEGATIVE); Cocaine NEGATIVE (NEGATIVE); METHAMPHETAM NEGATIVE (NEGATIVE); Methadone NEGATIVE (NEGATIVE); Opiates NEGATIVE (NEGATIVE); Phencyclidine NEGATIVE (NEGATIVE); THC Cannibis POSITIVE (NEGATIVE)
[2019-03-13] MEDS: MORPHINE 4 MG/ML SYR IV PRN (03:51)
[2019-03-13] MEDS ORDERED: METOPROLOL TAR 50 MG TAB PO SCH (06:00)
[2019-03-13] MEDS ORDERED: ENOXAPARIN 100 MG/ML SYR SQ SCH (06:00)
[2019-03-13] MEDS: TAMSULOSIN 0.4 MG SR CAP PO SCH (08:31)
[2019-03-13] MEDS: ASPIRIN EC 81 MG TAB PO SCH (08:32)
[2019-03-13] MEDS: AMIODARONE HCL 200 MG TAB PO SCH (08:32)
[2019-03-13] MEDS ORDERED: CHOLECALCIFEROL 400 UNIT PO SCH (09:00)
[2019-03-13] MEDS ORDERED: APIXABAN 5 MG TABLET PO SCH (09:00)
[2019-03-13] MEDS ORDERED: HYDROCHLOROTHIAZIDE 25 MG PO SCH (09:00)
--- NOTE | 2019-03-13 09:22 | P.HP ---
Certification for Inpatient Patient admitted to: Inpatient With expected LOS: >2 Midnights Patient will require the following post-hospital care: None Practitioner: I am a practitioner with admitting privileges, knowledge of patient current condition, hospital course, and medical plan of care. Services: Services provided to patient in accordance with Admission requirements found in Title 42 Section 412.3 of the Code of Federal Regulations Patient History Date of Service: 03/12/19 Reason for admission: Weakness and aphasia along with chest pain History of Present Illness: Patient is a 73-year-old gentleman who was in his normal state of health recent started experiencing aphasia. On he had got done cutting hair we started walking to his car and drifting toward his right side. He was able to recover from this episode. Today patient has smoked some marijuana that he has done for quite a while. He does this for his chronic back pain. He has had injections performed in the past, and he has been on pain medicine as well. This has been going on for many years. The only thing that has helped him his the marijuana. He is not sure if the marijuana caused his symptoms. He was worried it may have been laced with something that caused his aphasia. He states he was not able to speak and was not making any sense when he was talking. He got tearful in the family were worried he was having a stroke so they brought him to the hospital. Patient has amiodarone and Eliquis for treatment of his atrial fibrillation. Patient has been taking his medications regularly. Patient will be admitted to the hospital for TIA/stroke workup. Allergies levofloxacin [From Levaquin] Allergy (Verified 03/12/19 22:41) Shortness of breath Home Medications: Amiodarone HCl [Cordarone*] 100 mg PO DAILY 03/12/19 Apixaban [Eliquis] 5 mg PO BID 03/12/19 Cholecalciferol (Vitamin D3) [Vitamin D3] 400 unit PO DAILY 03/12/19 Simvastatin 40 mg PO BEDTIME 03/12/19 Tamsulosin [Flomax*] 2 cap PO DAILY 03/12/19 hydroCHLOROthiazide [Hydrochlorothiazide] 25 mg PO DAILY 03/12/19 - Past Medical/Surgical History Has patient received pneumonia vaccine in the past: Yes Diabetic: No -: HTN, -: scoliosis -: HLD -: A. Fib on eliquis -: cardiac stent -: tonsillectomy -: lap band -: lap band out - Family History Father Family History: Reviewed- Non-Contributory - Social History Smoking Status: Former smoker CD- Drugs: No Place of Residence: Home Review of Systems 10-point ROS is otherwise unremarkable Physical Examination - Vital Signs Temperature: 98.9 F Blood Pressure: 130/60 Pulse: 59 Respirations: 18 Pulse Ox (%): 97 - Physical Exam General: Alert, In no apparent distress, Oriented x3 HEENT: Atraumatic, PERRLA, Mucous membr. moist/pink, EOMI, Sclerae nonicteric Neck: Supple, 2+ carotid pulse no bruit, No LAD, Without JVD or thyroid abnormality Respiratory: Clear to auscultation bilaterally, Normal air movement Cardiovascular: Irregular heart rate/rhythm, Systolic murmur Gastrointestinal: Normal bowel sounds, Soft and benign, Non-distended, No tenderness Musculoskeletal: No clubbing, No swelling, No tenderness Integumentary: No rashes Neurological: Normal gait, Normal speech, Normal strength at 5/5 x4 extr, Normal tone, Sensation intact, Cranial nerves 3-12 intact, Normal affect Lymphatics: No axilla or inguinal lymphadenopathy - Studies Laboratory Data (last 24 hrs) 03/12/19 20:39: PT 13.5 H, INR 1.15, APTT 30.2 03/12/19 20:39: WBC 7.7, Hgb 14.1, Hct 42.3, Plt Count 183 03/12/19 20:39: Sodium 140, Potassium 3.3 L, BUN 20 H, Creatinine 1.16, Glucose 135 H, Magnesium 2.3, Total Bilirubin 0.5, AST 18, ALT 24, Alkaline Phosphatase 69 Assessment & Plan - Problems (Diagnosis) (1) Aphasia Current Visit: Yes Status: Acute (2) History of atrial fibrillation Current Visit: Yes Status: Acute (3) Coronary artery disease Current Visit: Yes Status: Acute (4) Chronic low back pain Current Visit: Yes Status: Acute (5) Hypertension Current Visit: Yes Status: Acute (6) Dyslipidemia Current Visit: Yes Status: Acute - Plan Plan: 1. patient will need stroke workup 2. continue anti-platelet therapy and Eliquis 3. continue statin therapy 4. MRI of the brain 5. monitor on telemetry 6. physical therapy evaluation 7. check serial troponins and EKG 8. GI and DVT prophylaxis Discharge Plan: Home Plan to discharge in: Greater than 2 days - Advance Directives Does patient have a Living Will: No Does patient have a Durable POA for Healthcare: No - Code Status/Comfort Care Code Status Assessed: Yes Code Status: Full Code Critical Care: No Time Spent Managing PTS Care (In Minutes): 50
--- NOTE | 2019-03-13 09:42 | P.PN ---
Subjective Date of Service: 03/12/19 patient's symptoms are stable today. However with his symptoms on this past and yesterday may be benefit to do stroke protocol MRI prior to discharge. Review of Systems 10-point ROS is otherwise unremarkable Physical Examination - Vital Signs Temperature: 98.9 F Blood Pressure: 130/60 Pulse: 59 Respirations: 18 Pulse Ox (%): 97 - Physical Exam General: Alert, In no apparent distress, Oriented x3 HEENT: Atraumatic, PERRLA, EOMI Neck: Supple, JVD not distended Respiratory: Clear to auscultation bilaterally, Normal air movement Cardiovascular: Regular rate/rhythm, Normal S1 S2 Gastrointestinal: Normal bowel sounds, Soft and benign, Non-distended, No tenderness Musculoskeletal: No clubbing, No swelling, No tenderness Integumentary: No rashes Neurological: Normal speech, Normal strength at 5/5 x4 extr, Normal tone, Sensation intact, Cranial nerves 3-12 intact, Normal affect Lymphatics: No axilla or inguinal lymphadenopathy - Studies Laboratory Data (last 24 hrs) 03/12/19 20:39: PT 13.5 H, INR 1.15, APTT 30.2 03/12/19 20:39: WBC 7.7, Hgb 14.1, Hct 42.3, Plt Count 183 03/12/19 20:39: Sodium 140, Potassium 3.3 L, BUN 20 H, Creatinine 1.16, Glucose 135 H, Magnesium 2.3, Total Bilirubin 0.5, AST 18, ALT 24, Alkaline Phosphatase 69 Medications List Reviewed: Yes Assessment & Plan - Problems (Diagnosis) (1) Aphasia Current Visit: Yes Status: Acute (2) History of atrial fibrillation Current Visit: Yes Status: Acute (3) Coronary artery disease Current Visit: Yes Status: Acute (4) Chronic low back pain Current Visit: Yes Status: Acute (5) Hypertension Current Visit: Yes Status: Acute (6) Dyslipidemia Current Visit: Yes Status: Acute - Plan Plan: Continue with current plan of care 1. patient will need stroke workup 2. continue anti-platelet therapy and Eliquis 3. continue statin therapy 4. MRI of the brain pending 5. monitor on telemetry 6. physical therapy evaluation 7. check serial troponins and EKG 8. GI and DVT prophylaxis Discharge Plan: Home Plan to discharge in: Greater than 2 days - Advance Directives Does patient have a Living Will: No Does patient have a Durable POA for Healthcare: No - Code Status/Comfort Care Code Status: Full Code Critical Care: No Time Spent Managing PTS Care (In Minutes): 30
[2019-03-13] MEDS: APIXABAN 5 MG TABLET PO SCH (20:14)
[2019-03-13] MEDS ORDERED: ATORVASTATIN 20 MG TAB PO SCH (21:00)
[2019-03-14 06:02] VITALS: O2SAT 98
--- NOTE | 2019-03-14 07:28 | RAD REPORT ---
EXAM DESCRIPTION: - CP - 03/13/2019 9:40 pm CLINICAL HISTORY: TIA COMPARISON: None. TECHNIQUE: Real-time sonographic evaluation of both carotid systems was performed. Kirkland scale and Do ppler interrogation were performed with waveform tracing bilaterally. FINDINGS: Normal high resistance waveforms are noted in both external carotid arteries. The common c arotid arteries and internal carotid arteries show normal low resistance waveforms. Calcified and noncalcified plaquing changes are identifiable. This is slightly worse in the right bul b. On visual inspection no significant degree of luminal narrowing identified. Peak systolic and end diastolic velocity values and the ICA/CCA ratios are in the non-hemodynamically significant range. Antegrade flow seen in the right vertebral artery. Left vertebral artery could not be visualized. Velocity values and ratios were recorded and are retained in the patient's imaging records. IMPRESSION: Calcified and noncalcified plaquing changes are present without significant luminal narr owing. No evidence of a hemodynamically significant stenosis. Nonvisualization of the left vertebral artery.
--- NOTE | 2019-03-14 07:44 | CON ---
Date of Consultation: 03/13/[address] Marina's service on 03/12/2019. I saw the patient on 03/13/2019. Reason For Consultation: Chest pain. History Of Present Illness: Patient is a 73-year-old white male, he is a patient of Dr. Khang torres in [facility] in [place]. He has had a history of coronary artery disease. He is stat us post stent. He has a history of hypertension, atrial fibrillation, dyslipidemia, benign prostatic hypertrophy, and depression. He only had a stent. He had what sounds like an aortic dissection or aortic tear, I am not really sure about the details. Apparently he stayed at the hospital for many d ays after his stent. He also has a history of scoliosis and had a lap band before. He came in with rather nonspecific symptoms including cold sweats, shaking. He was very tearful, diaphoretic, lighth eaded. Never really had any syncope, had sharp chest pain. Denied PND, orthopnea, pedal edema, palp itation, or actual syncope. By the time I saw him, he was already ruled out for an IN. EKG was unre markable. His blood work was all negative except for the potassium of 3.3. CT of the abdomen showed a thyroid nodule. No aortic dissection. Allergies: LEVAQUIN. Review of Systems: Negative. Social History: Negative. Family History: Negative. Medications: Include amiodarone, Plavix, Flomax, hydrochlorothiazide, , and Eliquis. Physical Examination: General: He was very pleasant, in no acute distress. He feels back to normal. Vital Signs: Stable. Afebrile. Sinus rhythm. HEENT: Negative. Neck: Supple with no bruit, lymphadenopathy, JVD, or thyromegaly. Chest: Clear to auscultation and percussion. Cardiac: Exam revealed a regular rhythm and rate. No murmurs, gallops, or rubs. Abdomen: Benign. Extremities: Revealed no clubbing, cyanosis, or edema. Skin: Dry and intact. Pulses were present throughout the dorsalis pedis and posterior tibial bilate rally. Neurologic: He was nonfocal. Diagnostic Data: As stated earlier. Impression And Plan: Symptoms of diaphoresis, shaking, tearfulness, dizziness most likely secondary to hypokalemia and/or orthostatic hypotension from the combination of Flomax and hydrochlorothiazide as well as Cymbalta. It is remotely possible that he became bradycardic from the amiodarone. Kavita chavez is ruled out for an IN. His potassium is being supplemented due to symptomatic. Comfortable wit h him going home and seeing Dr. Hernandez as an outpatient. He may need an event monitor down the ro ad if his symptoms persist. I suggested he take the hydrochlorothiazide less frequently, maybe twice a week and continue his other regimen. He has recently had a negative stress test and echocardiogra m with Dr. Hernandez and there is no need to repeat those here. There is an MRI pending tomorrow. H is other problems include hypertension, coronary artery disease, status post aortic dissection, statu s post lap band, atrial fibrillation, all of those problems are stable. I will discuss the case furt her with Dr. Marina, but from my standpoint he can go home whenever it is okay with him. FERDINAND/SIMON Voice ID: [id number] Report ID: [id number]
[2019-03-14] MEDS: ASPIRIN EC 81 MG TAB PO SCH (08:57)
[2019-03-14] MEDS: TAMSULOSIN 0.4 MG SR CAP PO SCH (08:57)
[2019-03-14] MEDS: APIXABAN 5 MG TABLET PO SCH (08:58)
[2019-03-14] MEDS: AMIODARONE HCL 200 MG TAB PO SCH (08:58)
--- NOTE | 2019-03-14 09:37 | EKG ---
Test Date: 2019-03-13 Test Time: 02:47:53 School Traffic Guard: RT-O MEASUREMENT RESULTS: Intervals: Rate: 67 NH: QRSD: 92 QT: 472 QTc: 498 [place]: P: NH: QRS: 22 T: 41 INTERPRETIVE STATEMENTS: Atrial fibrillation Prolonged QT Abnormal ECG Compared to ECG 03/12/2019 20:19:29 Sinus rhythm no longer present Left posterior fascicular block no longer present Myocardial infarct finding no longer present Electronically Signed On 03-14-19 09:37:20 MEMS ENGINEER by Elliott Mulligan
--- NOTE | 2019-03-14 09:40 | EKG ---
Test Date: 2019-03-12 Test Time: 20:19:29 Disaster Recovery Specialist: TR MEASUREMENT RESULTS: Intervals: Rate: 71 [place]: 188 QRSD: 92 QT: 474 QTc: 515 [place]: P: 108 [place]: 188 QRS: 170 T: 154 INTERPRETIVE STATEMENTS: Suspect arm lead reversal, interpretation assumes no reversal Normal sinus rhythm Right axis deviation Inferior infarct, age undetermined Prolonged QT Abnormal ECG No previous ECG available for comparison Please repeat ECG Electronically Signed On 03-14-19 09:39:44 MAKING LINE WORKER by Elliott Mulligan
[2019-03-14 09:54] LABS: Absolute Lymphocytes (CBC) 1.4 K/uL (0.7-4.9); Basophils % 0.5 % (0-1.3); Hematocrit 40.7 % (39.6-49.0); Lymphocytes % 23.4 % (15.3-44.8); MPV 8.8 fL (7.6-11.3); RBC Red Blood Cell Count 4.24 M/uL (4.33-5.43)
--- NOTE | 2019-03-14 10:06 | RAD REPORT ---
EXAM DESCRIPTION: MRI - MRA Neck W/Wo Cont - 03/14/2019 8:26 am CLINICAL HISTORY: TIA, aphasia, stroke-like symptoms COMPARISON: Carotid ultrasound March 13 TECHNIQUE: MR angiography of the cervical vasculature performed. Coronal imaging plane acquisition u tilized. A 20 MultiHance contrast volume was utilized. Coronal reformatted images were generated and reviewed. Vertical axis 3D rotational projections obtained using maximum intensity projection protoco l. FINDINGS: Great vessel aortic arch origins are unremarkable. No basilar artery origin abnormality. C odominant vertebral arteries show no dissection or stenosis. Basilar artery is better visualized on t his study and shows very minimal atherosclerotic change. No significant luminal narrowing. Bilateral common carotid arteries show no dissection. There is mild luminal narrowing at the origin o f the right common carotid artery. This is not considered hemodynamically significant. No significant atherosclerotic changes identified in either internal carotid artery or carotid bulb. There is some flow artifact present in the left bulb and proximal ICA that is believed to be technical rather than true disease. IMPRESSION: No hemodynamically significant degrees of stenosis. No dissection or other significant finding.
--- NOTE | 2019-03-14 10:09 | RAD REPORT ---
EXAM DESCRIPTION: MRI - Brain W/Wo Cont - 03/14/2019 8:25 am CLINICAL HISTORY: TIA, aphasia COMPARISON: CT head March 12 TECHNIQUE: Sagittal and axial T1-weighted images were obtained. Axial PD/heavily T2-weighted and T2- FLAIR images were obtained along with axial DWI/ADC mapping sequences. Coronal heavily T2 weighted s equence obtained. Axial and coronal post-contrast T1-weighted images were also obtained. A 20 ml Mul tihance contrast following utilized. FINDINGS: No intracranial hemorrhage, mass or acute infarction. There is no edema or shift of midli ne structures. No extra-axial fluid collections. Kirkland-matter/white matter junction is preserved. Sig nal voids are seen as a normal finding in the major intracranial vessels. Patient shows no measurable chronic ischemic change and little if any atrophy. Ventricles are normal in size. Post-contrast images show normal enhancement. No dural thickening. Mastoid air cells and paranasal sinuses are clear. IMPRESSION: No acute infarction changes. No hemorrhage, mass or acute intracranial finding. Patient shows very little atrophy and no measurable chronic ischemic change.
[2019-03-14 10:11] LABS: Albumin 3.6 g/dL (3.4-5.0); Bilirubin Total 0.7 mg/dL (0.2-1.0); Magnesium 2.3 mg/dL (1.8-2.4); Potassium 3.7 mmol/L (3.5-5.1); Protein, Total 6.8 g/dL (6.4-8.2)
--- NOTE | 2019-03-14 10:11 | RAD REPORT ---
EXAM DESCRIPTION: MRI - MRA Head Wo Cont - 03/14/2019 8:25 am CLINICAL HISTORY: TIA, stroke-like symptoms, aphasia COMPARISON: CT head March 12 TECHNIQUE: Axial and coronal 3D [id number] image acquisition was performed. 3D rotational images were generated with source and reconstruction images reviewed. Horizontal and vertical axis rotation al views generated using MIP protocol. FINDINGS: No aneurysm or vascular malformation identifiable. Basilar artery atherosclerotic changes are present without significant luminal narrowing. Distal vert ebral arteries are unremarkable. From skullbase to the supraclinoid termination, the bilateral internal revenue service agent al carotid arteries show no significant disease. Patient has a very small A1 segment of the right ant erior cerebral artery as normal anatomic variant. No significant anterior cerebral artery disease chantal ntifiable. Moderate areas of atherosclerotic narrowing seen in the M2 and M3 branches of each middle cerebral ar jillian. Both posterior cerebral artery show significant degrees of atherosclerotic luminal narrowing in the P2/P3 branches. IMPRESSION: Moderate atherosclerotic changes are present in the bilateral middle cerebral and aligner barrel and receiver ior cerebral artery distributions. Basilar artery atherosclerotic change present without significant luminal narrowing. No aneurysm or vascular malformation identified.
--- NOTE | 2019-03-14 11:22 | ECHO ---
HEIGHT: 6 ft 0 in WEIGHT: 228 lb 11.2 oz DATE OF STUDY: 03/14/[address]: Denise Gonzalez MD 2-DIMENSIONAL: YES M.MODE: YES DOPPLER: YES COLOR FLOW: YES TDS: PORTABLE: DEFINITY: BUBBLE STUDY: DIAGNOSIS: CHEST PAIN, ATRIAL FIBRILLATION. CARDIAC HISTORY: CATHERIZATION: YES SURGERY: NO PROSTHETIC VALVE: NO PACEMAKER: NO MEASUREMENTS (cm) DIASTOLIC (NORMALS) SYSTOLIC (NORMALS) IVSd 1.0 (0.6-1.2) LA Diam 3.7 (1.9-4.0) LVEF 59% LVIDd 3.4 (3.5-5.7) LVIDs 2.4 (2.0-3.5) %FS 31% LVPWd 1.1 (0.6-1.2) Ao Diam 2.7 (2.0-3.7) 2 DIMENSIONAL ASSESSMENT: RIGHT ATRIUM: NORMAL LEFT ATRIUM: NORMAL RIGHT VENTRICLE: NORMAL LEFT VENTRICLE: NORMAL TRICUSPID VALVE: NORMAL MITRAL VALVE: NORMAL PULMONIC VALVE: NORMAL AORTIC VALVE: NORMAL PERICARDIAL EFFUSION: NONE AORTIC ROOT: NORMAL LEFT VENTRICULAR WALL MOTION: NORMAL DOPPLER/COLOR FLOW: NORMAL COMMENTS: NORMAL TWO DIMENSIONAL ECHOCARDIOGRAM WITH DOPPLER. TECHNOLOGIST: URSZULA ROSA
[2019-03-14 12:30] VITALS: BP 118/63; TEMP 98.6
--- NOTE | 2019-03-14 14:37 | RAD REPORT ---
EXAM DESCRIPTION: CT - Angio Aorta For Dissection - 03/12/2019 10:40 pm CLINICAL HISTORY: The patient is 73 years old and is Male; ABDOMINAL DISTENTION TECHNIQUE: Axial computed tomographic angiography images of the chest, abdomen and pelvis with intra venous contrast. Sagittal and coronal reformatted images were created and reviewed. This CT exam was performed using one or more of the following dose reduction techniques: automated exposure cont rol, adjustment of the mA and/or kV according to patient size, and/or use of iterative reconstruction technique. MIP reconstructed images were created and reviewed. COMPARISON: No relevant prior studies available. FINDINGS: VASCULATURE: AORTA: No acute findings. No aortic aneurysm. No dissection. PULMONARY ARTERIES: Unremarkable as visualized. No pulmonary embolism is identified. GREAT VESSELS OF AORTIC ARCH: No acute findings. No dissection. No arterial occlusion or sig nificant stenosis. CELIAC TRUNK AND MESENTERIC ARTERIES: No acute findings. No occlusion or significant stenosis. RENAL ARTERIES: No acute findings. No occlusion or significant stenosis. ILIAC ARTERIES: No acute findings. No occlusion or significant stenosis. CHEST: LUNGS: Unremarkable. No mass. No consolidation. PLEURAL SPACE: Bilateral pleural plaques are present demonstrating minimal calcification. No s ignificant effusion. No pneumothorax. HEART: Unremarkable. No cardiomegaly. No significant pericardial effusion. THYROID: A 1.9 cm low attenuating right thyroid lesion is present. The thyroid is heterogeneous. ABDOMEN: LIVER: Unremarkable. No mass. GALLBLADDER AND BILE DUCTS: Unremarkable. No calcified stones. No ductal dilation. PANCREAS: Unremarkable. No ductal dilation. No mass. SPLEEN: Unremarkable. No splenomegaly. ADRENALS: Unremarkable. No mass. KIDNEYS AND URETERS: An exophytic 3.3 cm right renal cyst is present. The kidneys enhance symmet rically. No obstructing renal or ureteral calculus is seen. No hydronephrosis. No solid mass. STOMACH AND BOWEL: The stomach is minimally distended. The small bowel is relatively normal in c aliber. A moderate amount stool is present throughout the colon. There is no mucosal thickening or ev idence of bowel obstruction. PELVIS: APPENDIX: The appendix is normal in caliber without surrounding inflammation. BLADDER: The bladder is moderately distended. REPRODUCTIVE: Calcifications are present within the prostate. CHEST, ABDOMEN and PELVIS: INTRAPERITONEAL SPACE: Unremarkable. No significant fluid collection. No free air. BONES/JOINTS: Scoliotic curvature of the spine is present. Multilevel degenerative changes noted . No acute fracture. No dislocation. SOFT TISSUES: Unremarkable. LYMPH NODES: Unremarkable. No enlarged lymph nodes. IMPRESSION: 1. No evidence of aortic aneurysm or dissection. 2. Right thyroid nodule. Recommend thyroid US. Reference: J Am Blanquita Radiol. 2015 May;12(2): 143-50 Electronically signed by: Alissa Nunes MD 03/12/2019 10:30 PM TREE DOCTOR Due to temporary technical issues with the PACS/Fluency reporting system, reports are being signed by the in house radiologist as a courtesy to ensure prompt reporting. The interpreting radiologist is f ully responsible for the content of the report.
--- NOTE | 2019-03-15 01:38 | DS ---
Date of Discharge: 03/14/2019 Consultants: Dr. Wilkes with Cardiology. Admitting Diagnoses: 1.Aphasia. 2.History of atrial fibrillation. 3.Coronary artery disease. 4.Chronic low back pain. 5.Essential hypertension. 6.Dyslipidemia. 7.Dizziness. Discharge Diagnoses: 1.Aphasia, resolved. MRI negative for cerebrovascular accident. 2.History of atrial fibrillation, chronic, permanent. 3.Coronary artery disease [place] artery and [place] heart, without angina, stable. 4.Obesity, BMI 39. 5.Chronic low back pain. 6.Dizziness, likely due to overdiuresis. 7.Essential hypertension. 8.Dyslipidemia, stable. 9.Hypokalemia, corrected. Hospital Course: Patient is a 73-year-old male who has a past medical history of hypertension, hyper lipidemia, atrial fibrillation on Eliquis, history of heart disease with stents, comes in with aphasi a. Patient had sudden onset of this symptom. Patient was brought in for further evaluation. He als o had some dizziness and hypokalemia. This was felt to be due to his diuresis. He is on tamsulosin as well as hydrochlorothiazide. Workup including CT scan of the head did not show any changes. MRI of the brain and neck and brain MRA were done, which showed some atrophy, but no chronic ischemic jaquan nges. He had no acute hemorrhage, or ischemia. No acute CVA. MRA of the brain showed moderate basi lar artery atherosclerotic change without significant luminal narrowing. The neck MRA did not show a ny significant degree of stenosis. No dissection was seen. Patient was seen by Dr. Wilkes with Car diology. Echocardiogram was done, which showed EF of 59%, otherwise normal. Carotid artery ultrasou nd did not show any significant stenosis. There was some plaquing changes present however. CT disse ction was also done showed no evidence of aortic aneurysm or dissection, did show an incidental findi ng of right thyroid nodule 1.9 cm to be further evaluated with thyroid ultrasound. Patient was infor med of this finding. He voiced understanding. He comprehends that he needs to have a thyroid ultras ound to further evaluate this nodule, which may be cancerous or non-cancerous. He understands the ri sks and benefits of further evaluation and diagnosis. No family at the bedside. Patient was then cl eared for discharge from Cardiology standpoint. His hydrochlorothiazide was reduced to twice a week. He was then sent home in a stable condition. Activity: As tolerated. Medications: As per medication reconciliation list. Followup: Follow up with primary care physician in 2-3 days. Follow up with metalsmith helper in [place] in 2 weeks. Return to ER for worsening condition. Thyroid ultrasound as an outpatient to further e valuate thyroid nodule. Physical Examination: General: Awake, alert, and oriented x3. Elderly male, obese. CV: S1, S2, irregularly irregular. Respiratory: Moving air well bilaterally. Abdomen: Abdomen is soft, nontender, nondistended. Positive bowel sounds. Extremities: No clubbing, cyanosis, or edema. Neurologic: Nonfocal. Speech is normal. /SIMON Voice ID: [id number] Report ID: [id number]
== END 2019-03-14 14:20 | disposition home or self-care (01) ==
LOC: ER 19:19 → ERHOLD 21:22 → INTOOBSV 21:22 → 2ND 22:30
PROVIDERS: ADMIT Hospitalist; ATTEND Hospitalist
DX: R47.01 Aphasia (principal); I48.21 Permanent atrial fibrillation; I25.10 Atherosclerotic heart disease of native coronary artery without angina pectoris; E66.9 Obesity, unspecified; Z68.31 Body mass index [BMI] 31.0-31.9, adult; M54.5 Low back pain; R42 Dizziness and giddiness; I10 Essential (primary) hypertension; E78.5 Hyperlipidemia, unspecified; E87.6 Hypokalemia; Z79.01 Long term (current) use of anticoagulants; Z95.5 Presence of coronary angioplasty implant and graft
CPT/HCPCS: 93005 ×2; 93306; 85025 ×2; 80048; 36415 ×2; 80320; 83735 ×2; 80329 ×2; 85610; 80061; 80076; 80307 ×8; 85730; 84484 ×3; 80053; 83880; 70450; 71275; 74175; 71045; 93880; 70553; 70544; 70549; 96375; 96374; 99285; Q9967; A9577; J3411; J1650; J7030; G0378 ×3